=== PATIENT | female | born 2000 | race Caucasian/White ===

== ENCOUNTER 2024-01-24 15:27 | Outpatient (CLI) | payer OTHER | END 2024-01-24 16:40 | disposition home or self-care (01) | LOC: NST 15:27 | PROVIDERS: ATTEND Obstetrics & Gynecology Gynecology | DX: Z34.83 Encounter for supervision of other normal pregnancy, third trimester (principal) ==

== ENCOUNTER 2024-01-27 08:11 | Outpatient (CLI) | payer OTHER | END 2024-01-27 08:47 | disposition home or self-care (01) | LOC: NST 08:11 | PROVIDERS: ATTEND Obstetrics & Gynecology Gynecology | DX: Z34.83 Encounter for supervision of other normal pregnancy, third trimester (principal) ==

== ENCOUNTER 2024-03-09 13:57 | Outpatient (CLI) | payer OTHER | END 2024-03-09 14:44 | disposition home or self-care (01) | LOC: NST 13:57 | PROVIDERS: ATTEND Obstetrics & Gynecology Maternal & Fetal Medicine | DX: Z34.83 Encounter for supervision of other normal pregnancy, third trimester (principal) ==

== ENCOUNTER 2024-03-10 15:15 | Inpatient (IN) | payer OTHER ==
[~2024-03-10] VITALS: Ht 160 cm; Wt 70.8 kg
[2024-03-15] VITALS (11 sets, daily range): BP systolic 119–151; BP diastolic 67–82
[2024-03-15 09:25] LABS: HEMATOCRIT 34.2 % (36.0-45.00); HEMOGLOBIN 10.9 g/dL (12.0-15.00); MEAN CELL VOLUME 83.4 fL (80.00-100.00); MEAN CORPUSCULAR HEMOGLOBIN 26.5 pg (27.00-32.0); MEAN CORPUSCULAR HGB CONC 31.8 g/dl (32.0-36.0); PLATELET COUNT 285 K/uL (150-450)
[2024-03-15] MEDS ORDERED: METOPROLOL SUCC50 MG PO (09:27)
[2024-03-15] MEDS ORDERED: PRENATAL VITAM1 EAC6 PO (09:27)
[2024-03-15 09:53] LABS: ALBUMIN 2.8 gm/dL (3.4-5.0); BILIRUBIN TOTAL 0.48 mg/dL (0.3-1.2); CREATININE SERUM 0.47 mg/dL (0.55-1.02); GFR 161.46; GLOBULINA 3.7 G/DL (2.4-3.5); POTASSIUM 3.95 mEq/L (3.5-5.1); TOTAL PROTEIN 6.5 gm/dL (6.4-8.2)
[2024-03-15 09:54] LABS: INR < 0.93; PARTIAL THROMBOPLASTIN TIME 26.1 SECONDS (22.0-34.0); PROTHROMBIN TIME 10.2 SECONDS (9.0-11.5)
[2024-03-15] MEDS ORDERED: AMPICILLIN SODIUM 2,000 MG VIAL IV ONE (10:30)
[2024-03-15 11:05] LABS: PH,URINE 6.5 (5.0-8.0); URINE APPEARANCE Clear; URINE BACTERIA 30.2 uL (0.0-1933); URINE BILIRRUBIN Negative (NEGATIVE); URINE BLOOD Moderate; URINE COLOR Yellow; URINE EPITHELIAL CELLS 2.9 uL (0.0-38.8); URINE GLUCOSE Negative (NEGATIVE); URINE KETONE Trace (NEGATIVE); URINE LEUKOCYTE Negative; URINE NITRATE Negative; URINE PROTEIN Negative (NEGATIVE); URINE RBC 2.1 uL (0.0-20.8); URINE WBC 4.1 uL (0.0-23.2)
[2024-03-15 11:08] LABS: URINE CAST 0.15 uL (0.0-1.40)
[2024-03-15] MEDS ORDERED: AMPICILLIN SODIUM 1,000 MG VIAL IV SCH (13:00)
[2024-03-15] MEDS ORDERED: OXYTOCIN 500 ML IV SCH (15:00)
[2024-03-15] MEDS ORDERED: CHLORHEXIDINE GLUCONATE 120 ML BOTTLE TOP SCH (17:45)
[2024-03-15] MEDS ORDERED: OXYTOCIN 1,000 ML IV SCH (17:45)
[2024-03-15] MEDS ORDERED: ACETAMINOPHEN 500 MG GEL..CAP PO SCH (17:46)
[2024-03-15] MEDS ORDERED: ERYTHROMYCIN BASE OPHT 1GM EACH TUBE OP ONE (19:00)
[2024-03-16 02:37] VITALS: BP 120/82
[2024-03-16 06:26] LABS: HEMATOCRIT 27.1 % (36.0-45.00); HEMOGLOBIN 9.3 g/dL (12.0-15.00); MEAN CELL VOLUME 81.4 fL (80.00-100.00); MEAN CORPUSCULAR HGB CONC 34.4 g/dl (32.0-36.0); PLATELET COUNT 251 K/uL (150-450); RED BLOOD COUNT 3.33 M/uL (4.00-6.00); RED CELL DISTRIBUTION WIDTH 15.8 % (11.5-14.5)
[2024-03-16 08:38] VITALS: BP 139/70
[2024-03-16] MEDS ORDERED: IRON FUM,PS/FOLIC/BCOMP,C NO.9 1 CAP CAPSULE PO SCH (09:00)
[2024-03-16 16:42] VITALS: BP 100/65
[2024-03-16 21:45] LABS: HEMATOCRIT 27.1 % (36.0-45.00); HEMOGLOBIN 8.8 g/dL (12.0-15.00); MEAN CELL VOLUME 84.6 fL (80.00-100.00); MEAN CORPUSCULAR HEMOGLOBIN 27.5 pg (27.00-32.0); MEAN CORPUSCULAR HGB CONC 32.4 g/dl (32.0-36.0); PLATELET COUNT 269 K/uL (150-450)
[2024-03-17 01:21] VITALS: BP 106/69
[2024-03-17 06:15] VITALS: BP 104/56
[2024-03-17 08:52] VITALS: BP 121/87
[2024-03-17 16:00] VITALS: BP 118/80
== END 2024-03-17 17:22 | disposition home or self-care (01) | DRG 807 ==
LOC: LDR 03-15 07:07 → OB/GYN 03-15 18:17
PROVIDERS: Obstetrics & Gynecology; ADMIT Obstetrics & Gynecology Gynecology; ATTEND Obstetrics & Gynecology Gynecology
PROC: 10E0XZZ Delivery of Products of Conception, External Approach (ICD-10-PCS; principal; 2024-03-15)
PROC: 0UQG7ZZ Repair Vagina, Via Natural or Artificial Opening (ICD-10-PCS; 2024-03-15)
PROC: 4A1HXCZ Monitoring of Products of Conception, Cardiac Rate, External Approach (ICD-10-PCS; 2024-03-15)
DX: O71.4 Obstetric high vaginal laceration alone (principal); Z37.0 Single live birth; Z3A.39 39 weeks gestation of pregnancy